=== PATIENT | male | born 1980 | race Asian ===

== ENCOUNTER 2019-05-20 19:29 | Emergency (ER) | payer SELFPAY ==
[~2019-05-20] VITALS: Ht 185.4 cm; Wt 100.0 kg
[2019-05-20] MEDS ORDERED: ONDANSETRON HCL 4MG/2ML INJ IV STA (19:57)
[2019-05-20] MEDS ORDERED: MORPHINE SULFATE 4 MG/ML CPJ (NOT FOR IM USE) IV STA (19:57)
[2019-05-20] MEDS ORDERED: SODIUM CHLORIDE 0.9% 1,000 ML IV ONE (19:57)
[2019-05-20 20:21] LABS: BASOPHILS % 0.7 % (0.0-2.0); EOSINOPHILS % 1.2 % (0.0-5.0); HEMATOCRIT. 57.1 % (42.0-52.0); HEMOGLOBIN. 18.5 g/dL (14.0-18.0); LYMPHOCYTES % 19.5 % (20.0-50.0); MEAN CORPUSCULAR HEMOGLOBIN 28.9 pg (28.0-32.0); MEAN CORPUSCULAR VOLUME 89.2 fL (80.0-94.0); MEAN PLATELET VOLUME 8.4 fl (7.4-10.4); MONOCYTES % 9.4 % (2.0-8.0); NEUTROPHILS % 69.2 % (40.0-76.0); PLATELET 296 x1000/uL (130-400); RED BLOOD CELL COUNT 6.41 mill/uL (4.7-6.1); RED CELL DISTRIBUTION WIDTH 14.4 % (11.6-14.6)
[2019-05-20 20:26] LABS: CHLORIDE 107 mEq/L (98-107)
[2019-05-20 20:30] LABS: ETHANOL BLOOD < 10 mg/dL; INR 1.1; PARTIAL THROMBOPLASTIN TIME 28.9 sec (23.4-31.0); PROTHROMBIN TIME 11.4 sec (9.6-11.0)
[2019-05-20] MEDS ORDERED: ASPIRIN 81MG TABLET PO ONE (21:30)
[2019-05-20] MEDS ORDERED: KETOROLAC 30MG/ML VIAL IV ONE (21:30)
[2019-05-20 22:34] LABS: CREATINE KINASE MB FRACTION 12.1 ng/mL (0.5-3.6)
[2019-05-20 22:55] VITALS: BP 163/116
== END 2019-05-20 22:29 | disposition short-term general hospital (02) ==
LOC: ER 19:29
DX: S22.43XA Multiple fractures of ribs, bilateral, initial encounter for closed fracture (principal); S27.322A Contusion of lung, bilateral, initial encounter; S39.81XA Other specified injuries of abdomen, initial encounter; Y93.89 Activity, other specified; V83.5XXA Driver of special industrial vehicle injured in nontraffic accident, initial encounter; Y99.0 Civilian activity done for income or pay; Y92.520 Airport as the place of occurrence of the external cause; I10 Essential (primary) hypertension
CPT/HCPCS: 36415; 71045; 71250; 74176; 80053; 80320; 82550; 82553; 83690; 83880; 84484; 85025; 85610; 85730; 86850; 86900; 86901; 93005; 96374; 96375; 99285; J1885; J2270; J2405; J7030; Z7610; G0480